=== PATIENT | female | born 1955 | race Two or more races ===

== ENCOUNTER → 2023-04-22 | Outpatient (CLI) | LOC: M SOG 08:04 | PROVIDERS: ATTEND Orthopaedic Surgery | DX: M16.12 Unilateral primary osteoarthritis, left hip (principal) ==

== ENCOUNTER 2023-08-07 04:06 | Emergency (ER) | payer MEDICARE, OTHER ==
[~2023-08-07] VITALS: Ht 162.6 cm; Wt 110.0 kg
[2023-08-07] MEDS: LIDOCAINE 5% (LIDODERM) PATCH TD ONE (08:19)
[2023-08-07] MEDS ORDERED: ACET650T61 PO (09:44)
[2023-08-07] MEDS ORDERED: LIDO5DIS41 TD (09:44)
[2023-08-07 09:47] VITALS: BP 140/65; TEMP 96.7; O2SAT 100
== END 2023-08-07 10:00 | disposition home or self-care (01) ==
LOC: M ED 04:06
DX: M16.11 Unilateral primary osteoarthritis, right hip (principal); M43.16 Spondylolisthesis, lumbar region; M51.27 Other intervertebral disc displacement, lumbosacral region; Z79.1 Long term (current) use of non-steroidal anti-inflammatories (NSAID); Z79.899 Other long term (current) drug therapy

== ENCOUNTER → 2023-08-14 | Outpatient (CLI) | payer OTHER ==
[~2023-08-14] MED LIST: ACET650T61 PO; LIDO5DIS41 TD
== END ==
LOC: M SOG 09:28
PROVIDERS: ATTEND Orthopaedic Surgery
DX: M25.851 Other specified joint disorders, right hip (principal)

== ENCOUNTER 2023-09-03 07:21 | Emergency (ER) | payer OTHER ==
[~2023-09-03] VITALS: Ht 162.6 cm; Wt 109.1 kg
[2023-09-03] MEDS: IBUPROFEN 800 MG TAB PO ONE (12:36)
[2023-09-03] MEDS ORDERED: ISOVUE-370 76% 100ML VIAL As Ordered ONE (14:15)
[2023-09-03 14:25] LABS: HEMATOCRIT 42.7 % (36.0-47.0); HEMOGLOBIN 13.7 g/dl (12.0-15.5); MEAN CORPUSCULAR HEMOGLOBIN 31.9 pg (27.0-33.0); MEAN CORPUSCULAR HGB CONC 32.1 g/dl (32.0-36.5); MEAN CORPUSCULAR VOLUME 99.3 fl (80.0-96.0); PLATELET COUNT, AUTOMATED 180 10^3/uL (150-450); WHITE BLOOD COUNT 7.2 10^3/uL (4.0-10.0)
[2023-09-03] MEDS ORDERED: TRAM50TA2 PO (18:48)
[2023-09-03 19:06] VITALS: BP 135/80; TEMP 97.2; O2SAT 98
== END 2023-09-03 19:19 | disposition home or self-care (01) ==
LOC: M ED 07:21
DX: S49.91XA Unspecified injury of right shoulder and upper arm, initial encounter (principal); S59.901A Unspecified injury of right elbow, initial encounter; X50.0XXA Overexertion from strenuous movement or load, initial encounter; Y92.009 Unspecified place in unspecified non-institutional (private) residence as the place of occurrence of the external cause; Y93.F9 Activity, other caregiving; Y99.8 Other external cause status; R47.9 Unspecified speech disturbances
CPT/HCPCS: 36415; 70450; 70496; 70498; 70551; 73030; 73080; 73200; 80047; 85027; 93971; 99284; Q9967

== ENCOUNTER 2024-02-29 19:07 | Emergency (ER) | payer MEDICARE, OTHER ==
[~2024-02-29] VITALS: Ht 162.6 cm; Wt 100.2 kg
[~2024-02-29 19:07] MED LIST changes: +TRAM50TA2 PO
[2024-02-29 19:44] LABS: BASO % 0.2 % (0.0-1.0); EOS % 0.7 % (0.0-3.0); HEMATOCRIT 42.9 % (36.0-47.0); HEMOGLOBIN 13.7 g/dl (12.0-15.5); LYMPH # 0.3 10^3/uL (1.5-5.0); LYMPH % 4.6 % (24.0-44.0); MEAN CORPUSCULAR HEMOGLOBIN 31.9 pg (27.0-33.0); MEAN CORPUSCULAR HGB CONC 31.9 g/dl (32.0-36.5); MONO # 0.2 10^3/uL (0.0-0.8); MONO % 3.8 % (2.0-8.0); NEUTROPHILS # 5.5 10^3/uL (1.5-8.5); NEUTROPHILS % 90.5 % (36.0-66.0); PLATELET COUNT, AUTOMATED 159 10^3/uL (150-450); RED BLOOD COUNT 4.29 10^6/uL (4.00-5.40); WHITE BLOOD COUNT 6.1 10^3/uL (4.0-10.0)
[2024-02-29] MEDS: NS (Normal Saline) 0.9% 1,000 ML IV ONE (20:10)
[2024-02-29 20:15] LABS: BLOOD UREA NITROGEN 25 MG/DL (9-23); CALCIUM LEVEL 9.2 MG/DL (8.3-10.6); CARBON DIOXIDE LEVEL 26 MMOL/L (20-31); CHLORIDE LEVEL 110 MMOL/L (98-107); CREATININE FOR GFR 0.81 MG/DL (0.55-1.30); GLOMERULAR FILTRATION RATE > 60.0 (>45); GLUCOSE, FASTING 100 MG/DL (74-106); SODIUM LEVEL 144 MMOL/L (136-145)
[2024-02-29 20:18] LABS: THYROID STIMULATING HORMONE 3.314 uIU/ML (0.55-4.78)
[2024-02-29 20:34] LABS: ALBUMIN 3.6 G/DL (3.2-5.2); ALKALINE PHOSPHATASE 120 U/L (35-104); ALT/SGPT 19 U/L (7.0-40); AST/SGOT 16 U/L (<34); BILIRUBIN,DIRECT 0.1 MG/DL (<0.4); BILIRUBIN,TOTAL 0.4 MG/DL (0.3-1.2); TOTAL PROTEIN 7.4 G/DL (5.7-8.2)
[2024-02-29] MEDS: ONDANSETRON 4MG 2ML VIAL IV ONE (20:53)
[2024-02-29] MEDS: LOPERAMIDE 2 MG CAPLET PO ONE (20:53)
[2024-02-29] MEDS ORDERED: ONDA-284 PO (22:20)
[2024-02-29] MEDS ORDERED: LOPE1CAP5 PO (22:20)
[2024-02-29 22:30] VITALS: BP 161/86; TEMP 98; O2SAT 98
== END 2024-02-29 23:01 | disposition home or self-care (01) ==
LOC: EDBD 19:07 → M ED 19:07
DX: A08.39 Other viral enteritis (principal); Z91.013 Allergy to seafood; Z79.1 Long term (current) use of non-steroidal anti-inflammatories (NSAID); Z79.899 Other long term (current) drug therapy
CPT/HCPCS: 80048; 80076; 84443; 85025; 87486; 87581; 87633; 87798; 93005; 93041; 94760; 96361; 96374; 99285; J2405

== ENCOUNTER 2024-03-10 10:33 | Emergency (ER) | payer MEDICARE ==
[~2024-03-10] VITALS: Ht 162.6 cm; Wt 106.8 kg
[~2024-03-10 10:33] MED LIST changes: +LOPE1CAP5 PO; +ONDA-284 PO
[2024-03-10 10:40] VITALS: BP 187/84; TEMP 98.3; O2SAT 100
[2024-03-10 12:38] LABS: BASO % 0.4 % (0.0-1.0); EOS # 0.1 10^3/uL (0.0-0.5); EOS % 1.2 % (0.0-3.0); HEMATOCRIT 41.1 % (36.0-47.0); HEMOGLOBIN 13.5 g/dl (12.0-15.5); LYMPH # 1.2 10^3/uL (1.5-5.0); LYMPH % 21.1 % (24.0-44.0); MEAN CORPUSCULAR HEMOGLOBIN 32.2 pg (27.0-33.0); MEAN CORPUSCULAR HGB CONC 32.8 g/dl (32.0-36.5); MEAN CORPUSCULAR VOLUME 98.1 fl (80.0-96.0); MONO # 0.3 10^3/uL (0.0-0.8); MONO % 4.4 % (2.0-8.0); NEUTROPHILS # 4.1 10^3/uL (1.5-8.5); NEUTROPHILS % 72.7 % (36.0-66.0); PLATELET COUNT, AUTOMATED 190 10^3/uL (150-450); RED BLOOD COUNT 4.19 10^6/uL (4.00-5.40); WHITE BLOOD COUNT 5.7 10^3/uL (4.0-10.0)
[2024-03-10 12:52] LABS: INR 1.09; PARTIAL THROMBOPLASTIN TIME 29.8 SECONDS (24.8-34.2); PROTHROMBIN TIME 14.5 SECONDS (12.5-14.5)
[2024-03-10 13:00] LABS: C REACTIVE PROTEIN QUANTITATIV 0.74 MG/DL (<1.0)
[2024-03-10 13:01] LABS: ALBUMIN 3.4 G/DL (3.2-5.2); ALKALINE PHOSPHATASE 106 U/L (35-104); ALT/SGPT 21 U/L (7.0-40); AST/SGOT 16 U/L (<34); BILIRUBIN,DIRECT 0.2 MG/DL (<0.4); BILIRUBIN,TOTAL 0.5 MG/DL (0.3-1.2); BLOOD UREA NITROGEN 11 MG/DL (9-23); CARBON DIOXIDE LEVEL 29 MMOL/L (20-31); CHLORIDE LEVEL 107 MMOL/L (98-107); CREATININE FOR GFR 0.64 MG/DL (0.55-1.30); GLOMERULAR FILTRATION RATE > 60.0 (>45); GLUCOSE, FASTING 105 MG/DL (74-106); POTASSIUM SERUM 3.8 MMOL/L (3.5-5.1); SODIUM LEVEL 147 MMOL/L (136-145); TOTAL PROTEIN 7.2 G/DL (5.7-8.2)
[2024-03-10 13:42] LABS: ERYTHROCYTE SEDIMENTATION RATE 53 mm/hr (0-30)
[2024-03-10] MEDS: KETOROLAC 30 MG/ML 1ML VIAL IM ONE (15:05)
== END 2024-03-10 15:20 | disposition home or self-care (01) ==
LOC: M ED 10:33 → EDBD 10:33 → M ED 15:20
DX: M71.21 Synovial cyst of popliteal space [Baker], right knee (principal); Z86.718 Personal history of other venous thrombosis and embolism; Z91.013 Allergy to seafood; Z79.1 Long term (current) use of non-steroidal anti-inflammatories (NSAID); Z79.899 Other long term (current) drug therapy; R22.41 Localized swelling, mass and lump, right lower limb
CPT/HCPCS: 80048; 80076; 85025; 85610; 85652; 85730; 86140; 93971; 96372; 99284; J1885

== ENCOUNTER → 2024-03-15 | Outpatient (CLI) | payer MEDICARE | LOC: M SOG 07:59 | PROVIDERS: ATTEND Orthopaedic Surgery | DX: Z53.9 Procedure and treatment not carried out, unspecified reason (principal) ==

== ENCOUNTER → 2024-03-21 | Outpatient (CLI) | payer MEDICARE | LOC: M SOG 07:52 | PROVIDERS: ATTEND Orthopaedic Surgery | DX: Z53.9 Procedure and treatment not carried out, unspecified reason (principal) ==

== ENCOUNTER → 2024-03-29 | Outpatient (CLI) | payer MEDICARE | LOC: M SOG 07:56 | PROVIDERS: ATTEND Orthopaedic Surgery | DX: Z53.9 Procedure and treatment not carried out, unspecified reason (principal) ==

== ENCOUNTER → 2024-04-04 | Outpatient (CLI) | payer MEDICARE | LOC: M SOG 07:53 | PROVIDERS: ATTEND Orthopaedic Surgery | DX: Z53.9 Procedure and treatment not carried out, unspecified reason (principal) ==

== ENCOUNTER → 2024-04-06 | Outpatient (CLI) | payer MEDICARE | LOC: M SOG 07:56 | PROVIDERS: ATTEND Orthopaedic Surgery | DX: Z53.9 Procedure and treatment not carried out, unspecified reason (principal) ==

== ENCOUNTER 2024-11-24 17:49 | Emergency (ER) | payer MEDICARE ==
[~2024-11-24] VITALS: Ht 162.6 cm; Wt 100.0 kg
[~2024-11-24 17:49] MED LIST changes: +LIDO1ADH93 TD; -LIDO5DIS41 TD
[2024-11-24 18:33] LABS: BASO # 0.0 10^3/uL (0.0-0.2); BASO % 0.2 % (0.0-1.0); EOS # 0.1 10^3/uL (0.0-0.5); EOS % 1.2 % (0.0-3.0); LYMPH # 1.4 10^3/uL (1.5-5.0); LYMPH % 20.8 % (24.0-44.0); MONO # 0.5 10^3/uL (0.0-0.8); MONO % 6.8 % (2.0-8.0); NEUTROPHILS # 4.7 10^3/uL (1.5-8.5); NEUTROPHILS % 70.5 % (36.0-66.0); PLATELET COUNT, AUTOMATED 189 10^3/uL (150-450)
[2024-11-24 18:57] LABS: CALCIUM LEVEL 9.6 MG/DL (8.3-10.6); CARBON DIOXIDE LEVEL 22.0 MMOL/L (20-31); CHLORIDE LEVEL 108.0 MMOL/L (98-107); CREATININE FOR GFR 0.81 MG/DL (0.55-1.30); GLOMERULAR FILTRATION RATE 78.5 (>45); POTASSIUM SERUM 4.4 MMOL/L (3.5-5.1); SODIUM LEVEL 142.0 MMOL/L (136-145)
[2024-11-24] MEDS: ACETAMINOPHEN 325 MG TAB PO ONE (21:51)
[2024-11-24 22:04] VITALS: TEMP 96.2; O2SAT 97
[2024-11-24 22:06] VITALS: BP 179/85
== END 2024-11-24 22:27 | disposition home or self-care (01) ==
LOC: M ED 17:49 → EDBD 17:49 → M ED 22:27
DX: R55 Syncope and collapse (principal); M50.30 Other cervical disc degeneration, unspecified cervical region; Z91.013 Allergy to seafood; Z79.1 Long term (current) use of non-steroidal anti-inflammatories (NSAID); Z79.899 Other long term (current) drug therapy

== ENCOUNTER 2025-01-19 12:57 | Emergency (ER) | payer MEDICARE ==
[~2025-01-19] VITALS: Ht 162.6 cm; Wt 99.1 kg
[2025-01-19] MEDS ORDERED: IBUP200T46 PO (13:10)
[2025-01-19] MEDS ORDERED: PANT40TA29 (13:10)
[2025-01-19] MEDS: ACETAMINOPHEN 500 MG TAB PO ONE (17:59)
[2025-01-19] MEDS: KETOROLAC 60 MG/2 ML VIAL IM ONE (17:59)
[2025-01-19 18:16] VITALS: BP 174/80; TEMP 96.7; O2SAT 100
== END 2025-01-19 18:27 | disposition home or self-care (01) ==
LOC: EDBD 12:57 → M ED 12:57
DX: M16.11 Unilateral primary osteoarthritis, right hip (principal); K21.9 Gastro-esophageal reflux disease without esophagitis; Z91.013 Allergy to seafood; Z79.1 Long term (current) use of non-steroidal anti-inflammatories (NSAID); Z79.899 Other long term (current) drug therapy
CPT/HCPCS: 73502; 96372; 99284; J1885